=== PATIENT | female | born 1955 | race Caucasian/White ===

== ENCOUNTER → 2018-10-30 | Outpatient (CLI) | payer OTHER ==
[~2018-10-30] VITALS: Ht 165.1 cm; Wt 69.9 kg
[~2018-10-30] MED LIST: ALENDRONATE SOD70 MG PO; CELEBREX 200 M200 M1 PO; CENTRUM SILVER1 EAC4 PO; DIOVAN320 MG PO; EVISTA PO; FISH OIL 1,001000 M2 PO; L-LYSINE500 M1 PO; TUMS PO; VITAMIN D1000 UNI1 PO
--- NOTE | ~2018-10-30 | HPC ---
[facility] [place] [address] PAIN MANAGEMENT CONSULTATION Name: MARTHA BOWENS Room #: REG [facility] Gabriele.#: [id number] Admission: 10/30/18 ������������������ Attend Phys: Rick Christine MD Discharge: ������������������ Date of : 51 Report #: [id number] THIS REPORT FOR: //name// CC: Rambo Christine DATE OF SERVICE: 10/30/2018 Followup visit for low back pain with radiation into the left hip and leg. This is a pleasant 63-year-old who presents today with classic symptoms of lumbar radiculopathy. The pain is different than previous pains, which were treated as sacroiliac joint and facet arthropathy. She describes low back pain on her left side that radiates down through the leg in an L5 distribution to the foot. It has been ongoing and persistent. Pain is worse with walking. If she is at a store, it is hard for her to get all the way through. If she leans forward on a cart that seems to help. She has received acupuncture on two occasions and seen in the chiropractic 3 times a week for the last couple of weeks and received massage, but still complains of pain anywhere between 5 on an average day and 10/10 with shopping. The patient is active and enjoys running. 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 She works out at the gym. MEDICATIONS: Multivitamins, Evista, L-lysine, vitamin D, calcium, alendronate, Valsartan and Celebrex. ALLERGIES: CODEINE AND MEPERIDINE. PAST MEDICAL HISTORY: Remarkable for breast cancer 3 years ago. She underwent lumpectomy followed by chemotherapy and follows with Dr. Kizzy Roberts annually now. Her last mammogram was negative. REVIEW OF SYSTEMS: Negative currently. She denies bowel or bladder dysfunction. SOCIAL HISTORY: She is . Denies use of tobacco. She drinks alcohol in a social setting. PHYSICAL EXAMINATION: Pleasant female, appears fit, moves easily from sitting to standing position, ambulates without too much difficulty during her initial steps. Blood pressure 149/71, heart rate 93, respirations 16 and O2 sat is 100%. Her BMI is 25.6. Her spine reveals normal alignment. She has excellent range of motion in flexion, extension, rotation, [id number] tilt. Straight leg raising is mildly uncomfortable in the supine position. In sitting [address] [address] PAIN MANAGEMENT CONSULTATION Name: MARTHA BOWENS Room #: REG [facility]#: [id number] Admission: 10/30/18 ������������������ Attend Phys: Rick Christine MD Discharge: ������������������ Date of : 51 Report #: [id number] position, it is negative. She has excellent strength throughout. There is no focal weakness. Sensation is intact. Deep tendon reflexes are 2+ at knees and diminished at the ankles bilaterally. MRI scan is dated to 2015, but it does show that there is facet arthropathy. At L5-S1, there is an eccentric disk bulging to the right without canal stenosis. There is moderate right and left neural foraminal stenosis, however. IMPRESSION: Lumbar radiculopathy L5 distribution on the left. RECOMMENDATIONS: L5-S1 epidural injection, left paramedian approach. PROCEDURE: She was taken to the fluoroscopic suite, placed prone, skin prepped with ChloraPrep. Skin anesthetized over the epidural space and a 20-gauge Tuohy epidural needle advanced first attempt in the left lateral epidural space using a posterior approach. After negative aspiration, I injected 1 mL of Omnipaque and it demonstrated an excellent epidurogram followed by 3 mL of 0.5% lidocaine mixed with 80 mg of triamcinolone. She tolerated the procedure well. Pain was 0 at discharge. Followup visit planned in 1 month. No medications were ordered during this visit. ��������������������������������������������� ���������������������������������������� By: ��������������������������������������������� [id number] Rick Christine MD /nt
[2018-10-30 10:26] VITALS: BP 149/71
--- NOTE | 2018-10-30 10:43 | NUR ---
Pain Clinic Assessment: 1. History of Osteoarthritis: NO History of Rheumatoid Arthritis: NO 2. Height: 5 ft. 5 in. 165.1 cm. Weight: 154.0 lb. oz. 69.854 kg. Patient's BMI: 25.6 3. Vital Signs: BP: 149/71 Pulse: 93 Resp: 16 Temp: 02 Sat: 97 ECG Mon: 4. Pain Intensity: 0-5 10-SHOPPING 5. Fall Risk: Dizziness: N Needs help standing or walking: N Fallen in the last 3 months: N Fall risk comments: 6. Patient on Blood Thinner: None 7. History of Hypertension: Y 8. Opioid Therapy greater than 6 weeks: N Opiate Contract Signed: 9. Risk Assessment Tool Provided: LOW RISK 0/3 10. Functional Assessment Tool: 11. Recreational Drug Use: Never Drug Type: Tobacco Use: Never Smoker Tobacco Type: Amount or Packs/day: How Many Years: Alcohol Use: Yes Frequency: Quant:
== END | disposition home or self-care (01) ==
LOC: PAIN 07:00
DX: M54.16 Radiculopathy, lumbar region (principal); G89.29 Other chronic pain; Z79.899 Other long term (current) drug therapy; Z88.8 Allergy status to other drugs, medicaments and biological substances; Z98.890 Other specified postprocedural states; Z85.3 Personal history of malignant neoplasm of breast

== ENCOUNTER → 2018-11-30 | Outpatient (CLI) | payer OTHER ==
[~2018-11-30] VITALS: Ht 165.1 cm; Wt 68.5 kg
[~2018-11-30] MED LIST changes: +VALACYCLOVIR500 MG PO
--- NOTE | ~2018-11-30 | HPC ---
[facility] [address] PAIN MANAGEMENT CONSULTATION Name: MARTHA BOWENS Room #: REG [facility] Bong#: [id number] Admission: 11/30/18 ������������������ Attend Phys: Rick Christine MD Discharge: ������������������ Date of : 51 Report #: [id number] THIS REPORT FOR: //name// CC: Rambo Christine DATE OF SERVICE: 11/30/2018 Followup visit for lumbar radiculopathy. The patient returns to pain clinic today in followup. She had an epidural injection on 10/30/2018 with significant improvement. Her pain was essentially gone when she left the recovery room, and she had an extended period of time with relief. The pain then gradually returned, although she reports today that she is still better than she was at baseline. She scores her pain intensity as a 6/10 today. She would like to repeat the epidural injection. We discussed use of epidural injections, and we will proceed today with an injection, but we hope that we will see longer duration of action. In addition to pain, she complains of numbness and tingling that radiates into the left leg. Pain is worse generally with weightbearing activities. All medications reviewed and reconciled. She is on Celebrex 200 mg once daily. She continues to ride a bike, although she reports that she cannot run as she used to. She has had some chiropractic treatments and found that her hip that was "out" as described by the chiropractor was actually better after her epidural. PHYSICAL EXAMINATION: VITAL SIGNS: Blood pressure is 152/82, heart rate 88, respirations 16. She moves from sitting to standing position. Her gait is mildly antalgic. Straight leg raising is uncomfortable in the sitting position and in the supine, but this is mild. She has good strength and sensation. Normal deep tendon reflexes. X-rays again is reviewed showing an eccentric disk bulge to the right without canal stenosis, moderate right and left neural foraminal stenosis. IMPRESSION: Lumbar radiculopathy L5 distribution on the left. RECOMMENDATIONS: Repeat L5-S1 epidural injection. PROCEDURE: She was taken to fluoroscopic suite for the treatment, placed prone, skin prepped with ChloraPrep. Skin was anesthetized over the L5-S1 interspace. A 20-gauge Tuohy epidural needle advanced in the epidural space using loss of [address] [address] PAIN MANAGEMENT CONSULTATION Name: KWANMARTHA Room #: REG [facility] Bong#: [id number] Admission: 11/30/18 ������������������ Attend Phys: Rick Christine MD Discharge: ������������������ Date of : 51 Report #: [id number] resistance technique. There was no blood or CSF aspirated. A 1 mL of Omnipaque injected. Spread of dye observed into the epidural space, was followed by 3 mL of 0.5% lidocaine mixed with 80 mg of triamcinolone. He tolerated the procedure well and was observed for 45 minutes and discharged. Followup visit as needed. We will try to see her at 3-month intervals if necessary for epidural injections. ��������������������������������������������� ���������������������������������������� By: ��������������������������������������������� [id number] Rick Christine MD /nt
[2018-11-30 09:26] VITALS: BP 152/82
--- NOTE | 2018-11-30 09:32 | NUR ---
Pain Clinic Assessment: 1. History of Osteoarthritis: NO History of Rheumatoid Arthritis: NO 2. Height: 5 ft. 5 in. 165.1 cm. Weight: 151.0 lb. oz. 68.493 kg. Patient's BMI: 25.1 3. Vital Signs: BP: 152/82 Pulse: 88 Resp: 16 Temp: 02 Sat: 99 ECG Mon: 4. Pain Intensity: 6 5. Fall Risk: Dizziness: N Needs help standing or walking: N Fallen in the last 3 months: N Fall risk comments: 6. Patient on Blood Thinner: None 7. History of Hypertension: Y 8. Opioid Therapy greater than 6 weeks: N Opiate Contract Signed: 9. Risk Assessment Tool Provided: LOW RISK 0 10. Functional Assessment Tool: 11. Recreational Drug Use: Never Drug Type: Tobacco Use: Never Smoker Tobacco Type: Amount or Packs/day: How Many Years: Alcohol Use: Yes Frequency: Daily Quant: 1 glass wine
== END | disposition home or self-care (01) ==
LOC: PAIN 06:46
DX: M54.16 Radiculopathy, lumbar region (principal); M99.73 Connective tissue and disc stenosis of intervertebral foramina of lumbar region; Z79.899 Other long term (current) drug therapy; Z88.8 Allergy status to other drugs, medicaments and biological substances